=== PATIENT | female | born 1945 | race African-American/Black ===

== ENCOUNTER 2023-07-27 12:51 | Emergency (ER) | payer MEDICARE, MEDICAID ==
[~2023-07-27] VITALS: Ht 165.1 cm; Wt 55.0 kg
[2023-07-27 12:58] VITALS: O2SAT 98
[2023-07-27 14:00] LABS: BASOPHILS % 0.9 % (0.0-2.0); EOSINOPHILS % 1.6 % (0.0-5.0); HEMATOCRIT. 37.7 % (36.0-48.0); HEMOGLOBIN. 12.6 g/dL (12.0-16.0); LYMPHOCYTES % 27.1 % (20.0-50.0); MEAN CORPUSCULAR HGB CONC 33.4 g/dL (31.0-37.0); MEAN CORPUSCULAR VOLUME 98.8 fL (81.0-99.0); MEAN PLATELET VOLUME 8.7 fl (7.4-10.4); MONOCYTES % 5.8 % (2.0-8.0); NEUTROPHILS % 64.6 % (40.0-76.0); PLATELET 297 x1000/uL (130-400); RED BLOOD CELL COUNT 3.81 mill/uL (4.2-5.4); RED CELL DISTRIBUTION WIDTH 19.6 % (11.6-14.6); WHITE BLOOD COUNT 2.6 x1000/uL (4.5-11.0)
[2023-07-27 14:02] LABS: CHLORIDE 112 mEq/L (98-107); INDEX HEMOLYSI 5 (1-3); INDEX ICTERIC 1 (1-4); INDEX LIPEMIC 1 (1-3); POTASSIUM 5.2 mEq/L (3.5-5.1); SODIUM 138 mEq/L (136-145)
[2023-07-27 14:14] LABS: ALANINE AMINOTRANSFERASE 17 IU/L (13-61); ALBUMIN 3.2 g/dL (3.4-5.0); ASPARTATE AMINOTRANSFERASE 36 IU/L (15-37); BILIRUBIN TOTAL 0.4 mg/dL (0.1-1.0); CALCIUM 8.7 mg/dL (8.5-10.1); CARBON DIOXIDE 26 mEq/L (21-32); CREATININE 0.6 mg/dL (0.6-1.3); NT PRO B-TYPE NATRIURETIC PEP 2475 pg/mL (5-125); PROTEIN TOTAL 7.8 g/dL (6.0-8.3); TROPONIN I HIGH SENSITIVITY 13 ng/L (<54); UREA NITROGEN BLOOD 14 mg/dL (7-21)
[2023-07-27 14:33] LABS: INR 3.1; PARTIAL THROMBOPLASTIN TIME 42.1 sec (23.4-31.0); PROTHROMBIN TIME 30.6 sec (9.6-11.0)
[2023-07-27 14:35] LABS: GLUCOSE 87 mg/dL (70-105)
[2023-07-27] MEDS ORDERED: ASPIRIN 81MG TABLET PO ONE (16:30)
[2023-07-27 18:07] VITALS: BP 148/68; PULSE 59; RESP 14; TEMP 98.4
[2023-07-27] MEDS ORDERED: IOHEXOL-350 100 ML BOTTLE ONE (19:42)
== END 2023-07-27 18:08 | disposition left against medical advice (07) ==
LOC: ER 12:51 → EDBEDREQ 17:19 → EDBEDREQTM 17:19 → CANBEDREQ 18:05 → ER 18:08
DX: R41.82 Altered mental status, unspecified (principal); R29.810 Facial weakness; R47.81 Slurred speech; Z85.9 Personal history of malignant neoplasm, unspecified; I10 Essential (primary) hypertension; Z88.0 Allergy status to penicillin
CPT/HCPCS: 99285; 70496; 71045; 80053; 83880; 85025; 85610; 85730; 86850; 86900; 86901; 84484; 36415; 70498; 93005; 70450; 82962; Q9967